=== PATIENT | male | born 1960 | race African-American/Black ===

== ENCOUNTER 2020-06-02 09:33 | Emergency (ER) | payer MEDICAID ==
[~2020-06-02] VITALS: Ht 175.3 cm; Wt 74.0 kg
[2020-06-02] MEDS ORDERED: SODIUM CHLORIDE 0.9% 1,000 ML IV ONE (10:19)
[2020-06-02] MEDS ORDERED: DIPHENHYDRAMINE 50MG/ML VIAL IV ONE (10:30)
[2020-06-02] MEDS ORDERED: DEXAMETHASONE 10 MG/ML VIAL IV ONE (10:30)
[2020-06-02] MEDS ORDERED: METOCLOPRAMIDE HCL 10MG/2ML VIAL IV ONE (10:30)
[2020-06-02] MEDS: ACETAMINOPHEN 325MG TABLET PO STA ×2 (10:40→10:54)
[2020-06-02 10:52] LABS: HEMATOCRIT. 42.1 % (42.0-52.0); HEMOGLOBIN. 14.5 g/dL (14.0-18.0); MEAN CORPUSCULAR VOLUME 87.1 fL (80.0-94.0); MEAN PLATELET VOLUME 8.4 fl (7.4-10.4); PLATELET 221 x1000/uL (130-400); RED BLOOD CELL COUNT 4.83 mill/uL (4.7-6.1); RED CELL DISTRIBUTION WIDTH 13.3 % (11.6-14.6)
[2020-06-02 10:59] LABS: CHLORIDE 109 mEq/L (98-107)
[2020-06-02 11:25] LABS: CLARITY URINE CLEAR (CLEAR); COLOR URINE YELLOW (YELLOW); KETONES URINE NEGATIVE (NEGATIVE); LEUKOCYTE ESTERASE URINE NEGATIVE (NEGATIVE); NITRITE URINE NEGATIVE (NEGATIVE); OCCULT BLOOD URINE NEGATIVE (NEGATIVE); PH URINE 7.5 (4.5-8.0); PROTEIN URINE NEGATIVE (NEGATIVE); SPECIFIC GRAVITY URINE 1.009 (1.005-1.030); UROBILINOGEN URINE 0.2 E.U./dL (0.2-1.0)
[2020-06-02 11:54] LABS: PLATELET ESTIMATE NORMAL
[2020-06-02 12:00] VITALS: BP 135/82
== END 2020-06-02 13:07 | disposition home or self-care (01) ==
LOC: ER 09:46
DX: R51 Headache (principal); I10 Essential (primary) hypertension; E78.00 Pure hypercholesterolemia, unspecified; Z88.2 Allergy status to sulfonamides; Z98.890 Other specified postprocedural states
CPT/HCPCS: 36415; 70450; 80053; 81003; 85025; 85610; 93005; 96361; 96374; 96375; 99285; J1100; J1200; J2765; J7030

== ENCOUNTER 2021-07-23 08:58 | Emergency (ER) | payer MEDICAID ==
[~2021-07-23] VITALS: Ht 165.1 cm; Wt 99.0 kg
[2021-07-23] MEDS ORDERED: IBUPROFEN 800MG TABLET PO ONE (10:45)
[2021-07-23] MEDS ORDERED: DOLU50TA MT (11:40)
[2021-07-23] MEDS ORDERED: TRAM50TA3 MT (11:40)
[2021-07-23] MEDS ORDERED: ALLO100T MT (11:40)
[2021-07-23] MEDS ORDERED: EZET10TA13 MT (11:40)
[2021-07-23] MEDS ORDERED: EMTR1TAB12 MT (11:40)
[2021-07-23] MEDS ORDERED: TRAMADOL 50MG TABLET PO ONE (11:45)
[2021-07-23 12:05] VITALS: BP 155/96
== END 2021-07-23 12:08 | disposition home or self-care (01) ==
LOC: ER 08:58
DX: M16.12 Unilateral primary osteoarthritis, left hip (principal); Z76.0 Encounter for issue of repeat prescription; I10 Essential (primary) hypertension; E78.00 Pure hypercholesterolemia, unspecified; F32.A Depression, unspecified; Z88.2 Allergy status to sulfonamides
CPT/HCPCS: 73502; 99283